=== PATIENT | female | born 1965 | race African-American/Black ===

== ENCOUNTER 2017-03-19 12:55 | Emergency (ER) | payer OTHER ==
[~2017-03-19] VITALS: Ht 157.5 cm; Wt 68.7 kg
[2017-03-19 15:23] LABS: BASOPHIL % 0.9 % (0-2); PLATELET COUNT 283 x10^3mcL (130-400)
[2017-03-19 15:31] LABS: CALCIUM 8.8 mg/dL (8.5-10.1); CARBON DIOXIDE 30.5 mmol/L (21-32); CREATININE SERUM 1.1 mg/dL (0.6-1.0); POTASSIUM SERUM 4.1 mmol/L (3.5-5.1)
[2017-03-19 15:36] LABS: ALBUMIN 3.5 g/dL (3.4-5.0); BILIRUBIN TOTAL 0.2 mg/dL (0.20-1.00); MAGNESIUM 2.3 mg/dL (1.8-2.4); TOTAL PROTEIN, SERUM 7.5 g/dL (6.4-8.2)
[2017-03-19 16:04] VITALS: BP 123/78
== END 2017-03-19 16:04 | disposition home or self-care (01) ==
LOC: ED 12:55
PROVIDERS: Emergency Medicine
DX: J45.901 Unspecified asthma with (acute) exacerbation (principal); M25.532 Pain in left wrist
CPT/HCPCS: 36415; 83880; J7512; J7613; J7644; Q0092

== ENCOUNTER 2017-03-20 15:55 | Emergency (ER) | payer OTHER ==
[~2017-03-20] VITALS: Ht 154.9 cm; Wt 69.9 kg
[2017-03-20 16:30] VITALS: BP 143/93
== END 2017-03-20 16:44 | disposition home or self-care (01) ==
LOC: ED 15:55
DX: S52.615D Nondisplaced fracture of left ulna styloid process, subsequent encounter for closed fracture with routine healing (principal); X58.XXXD Exposure to other specified factors, subsequent encounter

== ENCOUNTER 2017-06-09 13:37 | Emergency (ER) | payer OTHER ==
[~2017-06-09] VITALS: Ht 157.5 cm; Wt 69.4 kg
[2017-06-09 13:45] VITALS: BP 157/89; Ht 157.5 cm; Wt 69.4 kg
== END 2017-06-09 15:35 | disposition home or self-care (01) ==
LOC: ED 13:37
DX: J02.9 Acute pharyngitis, unspecified (principal); R23.8 Other skin changes

== ENCOUNTER 2017-09-22 20:12 | Emergency (ER) | payer OTHER ==
[~2017-09-22] VITALS: Ht 157.5 cm; Wt 70.3 kg
[2017-09-22 20:14] VITALS: Ht 157.5 cm; Wt 70.3 kg
[2017-09-22 23:58] VITALS: BP 138/78
== END 2017-09-22 23:58 | disposition home or self-care (01) ==
LOC: ED 20:12
DX: J20.9 Acute bronchitis, unspecified (principal)
CPT/HCPCS: J2930; J7620

== ENCOUNTER 2017-10-23 13:09 | Emergency (ER) | payer OTHER ==
[~2017-10-23] VITALS: Ht 157.5 cm; Wt 68.0 kg
[2017-10-23 13:13] VITALS: Ht 157.5 cm; Wt 68.0 kg
[2017-10-23 14:46] VITALS: BP 124/75
== END 2017-10-23 14:46 | disposition home or self-care (01) ==
LOC: ED 13:09
DX: S93.401A Sprain of unspecified ligament of right ankle, initial encounter (principal); J45.909 Unspecified asthma, uncomplicated; W19.XXXA Unspecified fall, initial encounter; Y93.89 Activity, other specified; Y92.89 Other specified places as the place of occurrence of the external cause; Y99.8 Other external cause status
CPT/HCPCS: J1885